=== PATIENT | female | born 2000 | race Caucasian/White ===

== ENCOUNTER 2021-11-19 13:03 | Outpatient (CLI) | payer OTHER, SELFPAY ==
--- NOTE | 2021-11-21 12:47 | WPDHOLTEREM ---
Holter/Event Monitor Holter/Event Monitor Date of procedure: 11/19/21 Holter/Event Procedure: 24 Hr Holter Monitor Indications: Palpitations Conclusion: 1. 24 hour holter monitor on 11/19/21. 2. Underlying rhythm is sinus rhythm. HR range 52-146 bpm; average HR 85 bpm. 3. There are 9 premature supraventricular complexes. No supraventricular tachycardia. 4. There are 2 premature ventricular complexes. No ventricular tachycardia. 5. No sinoatrial or atrioventricular blocks. No significant pauses greater than 2 seconds. 6. Patient reports symptoms of dizziness, nausea, flutter which demonstrate sinus rhythm, HR range 71-94 bpm.
== END 2021-11-19 13:04 | disposition home or self-care (01) ==
LOC: ANHCARD 13:05
PROVIDERS: PCP Physician Assistant; Visit Provider Physician Assistant
DX: R00.2 Palpitations (principal)
CPT/HCPCS: 93225; 93226

== ENCOUNTER 2022-03-09 17:34 | Outpatient (CLI) | payer OTHER, SELFPAY ==
--- NOTE | ~2022-03-09 | CT_ITS ---
EXAMINATION: CT brain wo con DATE: 03/09/2022 17:55 INDICATION: Dizziness, vertigo. Headaches for 4 months. TECHNIQUE: Computed tomography (CT) of the head was performed without intravenous contrast. The mA wa s adjusted according to patient size. Iterative reconstruction technique was employed. Exam dose: 60 5.33 mGy-cm total exam DLP. COMPARISON: None FINDINGS: No intracranial mass lesion or hemorrhage or cerebrovascular accident. No midline shift or mass effect. Normal ventricular size. Normal aguilar-white matter differentiation. No subdural or epidur al hematoma. No fracture or bone destruction of the cranial vault. Mastoid air cells and included paranasal sinuse s are unremarkable. IMPRESSION: Negative examination Reviewed, dictated and finalized at [facility]. Reviewed, dictated and finalized at [facility]. IMPRESSION: Negative examination
== END 2022-03-09 17:35 | disposition home or self-care (01) ==
PROVIDERS: PCP Physician Assistant; Visit Provider Physician Assistant
DX: R42 Dizziness and giddiness (principal)
CPT/HCPCS: 70450